=== PATIENT | female | born 1930 | race Caucasian/White ===

== ENCOUNTER 2017-12-07 09:05 | Emergency (ER) | payer OTHER, MEDICARE ==
[2017-12-07] MEDS ORDERED: ACETAMINOPHEN 1000 MG/100 ML VIAL (NON FORMULARY) IVPB ONE (09:13)
[2017-12-07] MEDS ORDERED: SODIUM CHLORIDE 0.9% 500 ML INFUS.BAG IV ONE (09:13)
--- NOTE | 2017-12-07 09:15 | PDOC ---
History of Present Illness - General Chief Complaint: Injury Stated Complaint: FALL Time Seen by Provider: 12/07/17 09:10 History Source: Patient, EMS Exam Limitations: Dementia - History of Present Illness Initial Comments: 12/07/17 09:10 This is an 87 YOF with h/o A-fib on Eliquis, vascular dementia, behavioral disturbance, delusional disorder, and hypothyroidism on Synthroid, who was BIBA from her NH [facility] reported fall from bed this morning. The patient notes having fallen out of her bed and landed on her right hip. She cannot recall exactly what else happened or how long she was on the floor, but notes she had difficulty getting herself and "had to shimmy along the floor" and now has right knee and right medial hip/inguinal pain. She has not been able to walk since the incident. Staff at her NH noted that she was only down on the floor for a few minutes, but this was an unwitnessed event. The patient is full code on her [place] paperwork. Her PCP on [place] paperwork is Dr. Anthony. Past History - Past Medical History Allergies/Adverse Reactions: Allergies Allergy/AdvReac Type Severity Reaction Status Date / Time levothyroxine sodium Allergy Verified 12/07/17 09:11 [From Synthroid] Home Medications: Ambulatory Orders Apixaban [Eliquis] 2.5 mg PO Q12H 12/07/17 Azelastine HCl 2 spray NS DAILY 12/07/17 Cholecalciferol (Vitamin D3) [Vitamin D] 2,000 unit PO DAILY 12/07/17 Diltiazem Cd [Cardizem Cd -] 120 mg PO DAILY 12/07/17 Review of Systems - Review of Systems Able to Perform ROS?: No (dementia) *Physical Exam - Physical Exam General Appearance: Yes: Nourished. No: Apparent Distress HEENT: positive: EOMI, LANI (pupils 2 mm bilaterally), Normal ENT Inspection, Normal Voice, Hearing Grossly Normal. negative: Scleral Icterus (R), Scleral Icterus (L), Nasal Congestion Neck: positive: Trachea midline, Supple. negative: Tender, Rigid, Tender lateral, Tender midline Respiratory/Chest: positive: Lungs Clear, Normal Breath Sounds. negative: Chest Tender, Respiratory Distress, Crackles, Rhonchi, Stridor, Wheezing Cardiovascular: positive: Regular Rhythm, Regular Rate, Other (occasional ectopy ). negative: Murmur Vascular Pulses: Dorsalis-Pedis (R): 2+, Doralis-Pedis (L): 2+ Gastrointestinal/Abdominal: positive: Normal Bowel Sounds, Flat, Soft. negative : Tender, Organomegaly, Pulsatile Mass, Guarding Musculoskeletal: positive: Normal Inspection, Other (no midline vertebral tenderness C/T/L spine, no stepoff or deformity, no back hematoma). negative: Decreased Range of Motion Extremity: positive: Normal Capillary Refill, Normal Inspection, Normal Range of Motion, Tender (right inguinal tenderness which is mild, BLE equal length without rotation). negative: Cyanosis Integumentary: positive: Normal Color, Dry, Warm, Other (no thigh hematoma). 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 negative: Fully Oriented, Facial Droop, Numbness, Sensory Deficit Heart Score/ECG Review #1 Atrial fibrillation, rate of 86, low voltage QRS, no ischemic ST-T changes ED Treatment Course - LABORATORY CBC & Chemistry Diagram: 12/07/17 09:34 12/07/17 10:40 Medical Decision Making - Medical Decision Making 12/07/17 09:49 Elderly female on Eliquis with h/o dementia Pt p/w reported unwitnessed fall from bed at [place]. Initial Vital Signs Temp Pulse Resp BP Pulse Ox 97.6 F 82 18 108/76 97 12/07/17 09:05 12/07/17 09:05 12/07/17 09:05 12/07/17 09:05 12/07/17 09:05 Exam: As noted in Physical Exam section. DDX IBNLT: hip/pelvis/femur fxr, hip dislocation, thigh hematoma, compartment syndrome, sprain/strain, contusion, etc. W/U ordered: XR hip/pelvis/knee Rt, XR knee Lt, CT head anc C-spine WO, CXR, CBCD CMP Cardiac Panel Coags EKG TX ordered: IV Ofirmev. NPO until further notice. EKG: Reviewed; results as noted in ECG Review section. CXR: Nothing acute Rt Hip Pelvis XR: Rt Knee XR: Lt Knee XR: Head CT: Chronic changes but nothing acute. C-spine CT: Chronic changes but nothing acute. Labs: Reassessment: Repeat VS: ADMIT The Pt is unsafe for discharge at this time. They require further hospital observation, workup, and treatment. Microblog sent to [facility] for admission. Spoke with admitting team counter sales representative, in agreement Pt to be admitted. Decision to Admit order placed to admitting team covering attending. TRANSFER The Pt is unsafe for discharge at this time. They require further hospital observation, workup, and treatment. They need evaluation at a trauma center given the mechanism and w/u results. Transfer center called and connected with admitting provider. Pt to be transferred to: [facility] Pt accepted in transfer to: [facility] Patient/family informed of plan for transfer and they agree with this plan. Transfer paperwork completed and signed by all indicated parties. EMS crew arrives and transfers Pt to ambulance without issue. DISCHARGE The Pt has gotten significant relief of symptoms with ED medications. Workup is not concerning for emergency-level pathology at this time. The Pt is appropriate for discharge with close outpatient follow up. They are comfortable with this plan and will follow up with their PCP in 1-3 days. Referral information is given for orthopedist on-call. Specific return precautions are discussed and they will come back to the ER if necessary. 12/07/17 10:33 12/07/17 10:57 *DC/Admit/Observation/Transfer Diagnosis at time of Disposition: Fall from bed, initial encounter - Discharge Dispostion [facility]position[facility] Condition at time of disposition: Stable Decision to Admit order: No - Referrals Referrals: Cheng Anthony MD [Primary Care Provider] - - Patient Instructions Additional Instructions: You were seen in the ER for a reported fall from bed. We did laboratory work on your blood, took x-rays, and took CT scans which showed no new concerning problems. We gave you medications here in the ER which helped with your symptoms. After our assessment, we do not believe you are having a medical emergency any longer at this time, and we believe you are safe to go home. Take Tylenol as needed for pain. Follow up with your PCP in the next 1-3 days. Please come back to the ER at any time, 24 hours a day, for any new or worsening symptoms, especially severe pain, bleeding, numbness, tingling, weakness of one part or side of your body, new difficulty balancing, vision changes, headache, or other symptoms. If you are having symptoms that make it unsafe to drive, please call 911. PLEASE TAKE THE LIDODERM PATCH OFF OF THE RIGHT HIP AND DISPOSE OF IT BEFORE 10 PM TONIGHT (Wednesday12/07/17). - Post Discharge Activity
[2017-12-07 09:22] VITALS: BMI 22.1
--- NOTE | 2017-12-07 09:25 | PDOC ---
Attending Attestation - Resident Resident Name: Neha Truong - ED Attending Attestation I have performed the following: I have examined & evaluated the patient, The case was reviewed & discussed with the resident, I agree w/resident's findings & plan - HPI HPI: 12/07/17 09:24 Heikes 87 YOF with h/o Afib on Eliquis, vascular dementia with behavioral disturbances, hypothyroidism presenting from NH with unwitnessed fall out of bed. +difficulty getting up from the floor, unclear timing of how long she was down. ? right knee and hip pain. ?LOC. history limited 2/2 dementia. - Physicial Exam PE: 12/07/17 11:52 General: GCS 15 NAD, pleasantly demented HEENT: NCAT, PERRL, EOMI. Airway intact. Neck: neck supple, no midline C spine tenderness, ROM intact. Resp: Lungs clear, no crepitus Chest: no clavicle or chest wall tenderness CVS: irreg irregular, 2+ pulses throughout. Abdomen: Abdomen soft, NTND, nonperitoneal. Back: Back nontender, no midline spinal tenderness, FROM, no stepoffs. MSK: Pelvis stable, FROM in all extremities. normal limb length and symmetric ; +TTP to right hip and thigh and knee, but FROM on passive exam. Neuro: Alert, no focal neuro deficits. Skin: intact, normal color and well perfused. 12/07/17 11:52 - Medical Decision Making 12/07/17 09:24 Heikes 87 YOF with h/o Afib on Eliquis, vascular dementia with behavioral disturbances, hypothyroidism presenting from NH with unwitnessed fall out of bed. +difficulty getting up from the floor, unclear timing of how long she was down. ? right knee and hip pain. ?LOC. history limited 2/2 dementia. Vitals signs wnl, reviewed, Plan for XR pelvis, right hip/knee, CXR, CT head and C spine to r/o bleed/ injuries; basic labs, UA/cx CT head with microvascular changes, no bleed or injuries. C spine with degenerative changes, no fx. Labs wnl, reassuring, no derangements. XR imaging including CXR and extremities wnl, no bony deformities or injuries noted. plan: discharge in stable condition, gait stable, at baseline. back to nursing facility. 12/07/17 10:27 12/07/17 11:53 12/07/17 11:54 Heart Score/ECG Review - ECG Impressions Normal ECG: No Comment:: 12/07/17 10:28 Afib at 86 bpm, low voltage, TWI in III, AVF
[2017-12-07] MEDS ORDERED: ACETAMINOPHEN INJECTION 100 ML IVPB ONE (09:31)
[2017-12-07 09:59] LABS: BASO % 0.9 % (0-2.0); EOS % 1.6 % (0-4.5); HEMATOCRIT 39.2 % (32.4-45.2); HEMOGLOBIN 13.1 GM/dl (10.7-15.3); LYMPH % 16.1 % (8-40); MCHC 33.5 g/dl (32.0-36.0); MEAN CELL VOLUME 89.7 fl (80-96); MEAN PLT VOLUME 9.7 fl (7.5-11.1); MONO % 11.3 % (3.8-10.2); NEUT % 70.1 % (42.8-82.8); PLATELET COUNT 235 K/MM3 (134-434); RBC 4.37 M/mm3 (3.60-5.2); RDW 14.4 % (11.6-15.6); WHITE BLOOD COUNT 9.8 K/mm3 (4.0-10.8)
[2017-12-07 10:22] LABS: INR 1.72 (0.82-1.09); PROTHROMBIN TIME (PATIENT) 19.1 SEC (10.2-13.0)
[2017-12-07] MEDS ORDERED: LIDOCAINE 5% TOPICAL PATCH TP ONE (10:37)
[2017-12-07 10:58] LABS: ALBUMIN 3.9 g/dl (3.5-5.0); ALK PHOS 50 U/L (32-92); ANION GAP 8 (8-16); BILIRUBIN,TOTAL 0.8 mg/dl (0.2-1.0); BLOOD UREA NITROGEN 14 mg/dl (7-18); CALCIUM 8.7 mg/dl (8.4-10.2); CHLORIDE 99 mmol/L (98-107); CO2 24 mmol/L (22-28); CREATININE 0.7 mg/dl (0.6-1.3); GLUCOSE,RANDOM 95 mg/dl (74-106); MAGNESIUM 1.9 mg/dL (1.8-2.4); PHOSPHOROUS 3.6 mg/dl (2.5-4.6); POTASSIUM 3.9 mmol/L (3.5-5.1); SGOT/AST 18 U/L (10-42); SGPT/ALT 13 U/L (10-40); SODIUM 131 mmol/L (136-145); TOT PROT 6.6 g/dl (6.4-8.3)
[2017-12-07 14:09] VITALS: BP 122/58; PULSE 87; TEMP 98.1
[2017-12-07] MEDS ORDERED: LIDOCAINE PATCH REMOVAL MC SCH (22:00)
--- NOTE | 2017-12-09 16:49 | EKG ---
Test Reason : Blood Pressure : / mmHG Vent. Rate : 086 BPM Atrial Rate : 083 BPM P-R Int : 000 ms QRS Dur : 076 ms QT Int : 364 ms P-R-T Axes : 000 035 -09 degrees QTc Int : 435 ms ATRIAL FIBRILLATION LOW VOLTAGE QRS CANNOT RULE OUT ANTERIOR INFARCT , AGE UNDETERMINED ABNORMAL ECG NO PREVIOUS ECGS AVAILABLE Confirmed by RIC FRANCO MD ([id number]) on 12/09/2017 3:50:32 PM Referred By: MD OLVERA Confirmed By:RIC FRANCO MD
== END 2017-12-07 14:10 ==
LOC: FER 09:05
PROC: 3E033GC Introduction of Other Therapeutic Substance into Peripheral Vein, Percutaneous Approach (ICD-10-PCS; principal; 2017-12-07)
PROC: 3E0337Z Introduction of Electrolytic and Water Balance Substance into Peripheral Vein, Percutaneous Approach (ICD-10-PCS; 2017-12-07)
DX: Z04.3 Encounter for examination and observation following other accident (principal); W00.9XXA Unspecified fall due to ice and snow, initial encounter; Y93.89 Activity, other specified; Y92.129 Unspecified place in nursing home as the place of occurrence of the external cause; I48.91 Unspecified atrial fibrillation; Z79.01 Long term (current) use of anticoagulants
CPT/HCPCS: 36415; 70450-TC; 71045-TC-FY; 72100-TC-FY; 72125-TC; 73523-TC-FY; 73562-TC-LT-FY; 73562-TC-RT-FY; 80053; 82550; 83735; 84100; 84484; 85025; 85610; 85730; 93005; 99283-25; J0131